=== PATIENT | female | born 1960 | race Caucasian/White ===

== ENCOUNTER 2019-03-10 21:42 | Inpatient (IN) | payer OTHER ==
[2019-03-10 22:13] LABS: ADD MAN DIFF? NO
[2019-03-10 22:17] LABS: BASOPHILS % 0.3 % (0.0-2.0); EOSINOPHILS # 0.3 10^3/ul (0.0-0.5); EOSINOPHILS % 2.9 % (0.0-7.0); HEMATOCRIT 40.6 % (37.0-47.0); HEMOGLOBIN 13.3 g/dl (12.0-16.0); LYMPHOCYTES # 3.6 10^3/ul (0.8-2.9); LYMPHOCYTES % 36.8 % (15.0-51.0); MEAN CORPUSCULAR HEMOGLOBIN 28.9 pg (29.0-33.0); MEAN CORPUSCULAR HGB CONC 32.8 g/dl (32.0-37.0); MEAN CORPUSCULAR VOLUME 88.3 fl (82.0-101.0); MEAN PLATELET VOLUME 10.7 fl (7.4-10.4); MONOCYTE # 0.6 10^3/ul (0.3-0.9); MONOCYTES % 6.1 % (0.0-11.0); NEUTROPHIL # 5.3 10^3/ul (1.6-7.5); NEUTROPHILS % 53.6 % (39.0-77.0); PLATELET COUNT 303 10^3/UL (140-415); RED CELL DISTRIBUTION WIDTH 13.3 % (11.5-14.5)
[2019-03-10 22:17] LABS: WHITE BLOOD COUNT 9.8 10^3/ul (4.8-10.8)
[2019-03-10 22:39] LABS: ANION GAP 12 (5-13); BLOOD UREA NITROGEN 18 mg/dl (7-20); CALCIUM 10.5 mg/dl (8.4-10.2); CARBON DIOXIDE 26 mmol/L (21-31); CHLORIDE 102 mmol/L (97-110); CREATININE 1.15 mg/dl (0.44-1.00); Estimated GFR 48 mL/min (>60); GLUCOSE 136 mg/dl (70-220); POTASSIUM 3.5 mmol/L (3.5-5.1); SODIUM 140 mmol/L (135-144)
[2019-03-10 22:49] LABS: TROPONIN-I < 0.012 ng/ml (0.000-0.120)
[2019-03-11] MEDS ORDERED: ONDANSETRON 4 MG INJ IV ×2 (00:30)
[2019-03-11] MEDS ORDERED: DOCUSATE SODIUM 100 MG CAP PO (00:30)
[2019-03-11] MEDS ORDERED: BISACODYL (EC) 5 MG TAB PO (00:30)
[2019-03-11] MEDS ORDERED: NITROGLYCERIN (SL) 0.4 MG TAB SL (00:30)
[2019-03-11] MEDS ORDERED: NACL 0.9% 3 ML SYG IV (00:30)
[2019-03-11] MEDS ORDERED: morphine 2 MG INJ IV (00:30)
[2019-03-11] MEDS ORDERED: ACETAMINOPHEN 325 MG TAB PO ×2 (00:30)
[2019-03-11] MEDS: POTASSIUM CHLORIDE (SR) 20 MEQ TAB PO ×2 (03:14→08:32)
[2019-03-11] MEDS: SOD CHLORIDE 0.9% 500 ML IV (03:19)
[2019-03-11 05:30] LABS: CREATINE KINASE 111 IU/L (23-200)
[2019-03-11 05:37] LABS: CK INDEX 0.3; CK-MB 0.34 ng/ml (0.0-2.4); TROPONIN-I < 0.012 ng/ml (0.000-0.120)
[2019-03-11] MEDS: ESTROGENS CONJUGATED 0.3 MG TAB PO (08:32)
[2019-03-11] MEDS: AMLODIPINE 5 MG TAB PO (08:32)
[2019-03-11 11:34] LABS: CREATINE KINASE 104 IU/L (23-200)
[2019-03-11 11:47] LABS: CK INDEX 0.3; CK-MB 0.32 ng/ml (0.0-2.4); TROPONIN-I < 0.012 ng/ml (0.000-0.120)
[2019-03-11 15:04] LABS: CREATINE KINASE 110 IU/L (23-200)
[2019-03-11 15:16] LABS: CK INDEX 0.3; CK-MB 0.29 ng/ml (0.0-2.4); TROPONIN-I < 0.012 ng/ml (0.000-0.120)
[2019-03-12 08:59] LABS: ADD MAN DIFF? NO
[2019-03-12 09:01] LABS: WHITE BLOOD COUNT 7.2 10^3/ul (4.8-10.8)
[2019-03-12 09:01] LABS: BASOPHILS % 0.4 % (0.0-2.0); EOSINOPHILS # 0.4 10^3/ul (0.0-0.5); EOSINOPHILS % 5.7 % (0.0-7.0); HEMATOCRIT 37.6 % (37.0-47.0); HEMOGLOBIN 12.4 g/dl (12.0-16.0); LYMPHOCYTES # 3.4 10^3/ul (0.8-2.9); LYMPHOCYTES % 47.4 % (15.0-51.0); MEAN CORPUSCULAR HEMOGLOBIN 29.3 pg (29.0-33.0); MEAN CORPUSCULAR VOLUME 88.9 fl (82.0-101.0); MEAN PLATELET VOLUME 10.8 fl (7.4-10.4); MONOCYTE # 0.6 10^3/ul (0.3-0.9); MONOCYTES % 8.2 % (0.0-11.0); NEUTROPHIL # 2.7 10^3/ul (1.6-7.5); NEUTROPHILS % 38.2 % (39.0-77.0); PLATELET COUNT 273 10^3/UL (140-415); RED BLOOD COUNT 4.23 10^6/ul (4.20-5.40); RED CELL DISTRIBUTION WIDTH 13.2 % (11.5-14.5)
[2019-03-12 09:10] LABS: HEMOGLOBIN A1C 6.2 % (0-5.9)
[2019-03-12 09:27] LABS: ALANINE AMINOTRANSFERASE 15 IU/L (13-69); ALBUMIN 4.1 g/dl (3.3-4.9); ALBUMIN/GLOBULIN RATIO 1.05; ALKALINE PHOSPHATASE 64 IU/L (42-121); ANION GAP 9 (5-13); ASPARTATE AMINO TRANSFERASE 18 IU/L (15-46); BILIRUBIN,INDIRECT 0.2 mg/dl (0-1.1); BILIRUBIN,TOTAL 0.2 mg/dl (0.2-1.3); BLOOD UREA NITROGEN 15 mg/dl (7-20); CALCIUM 9.9 mg/dl (8.4-10.2); CARBON DIOXIDE 25 mmol/L (21-31); CHLORIDE 107 mmol/L (97-110); CHOL/HDL RATIO 3.6 RATIO; CHOLESTEROL 173 mg/dl (100-200); CREATININE 0.84 mg/dl (0.44-1.00); Estimated GFR > 60 mL/min (>60); GLUCOSE 117 mg/dl (70-220); HDL CHOLESTEROL 47 mg/dl (35-98); LDL CHOLESTEROL,CALCULATED 107 mg/dl; MAGNESIUM 2.1 mg/dl (1.7-2.5); SODIUM 141 mmol/L (135-144); TRIGLYCERIDES 96 mg/dl (0-149)
[2019-03-12] MEDS: ESTROGENS CONJUGATED 0.3 MG TAB PO (09:43)
[2019-03-12] MEDS: AMLODIPINE 5 MG TAB PO (09:44)
[2019-03-12] MEDS: POTASSIUM CHLORIDE (SR) 20 MEQ TAB PO (09:44)
[2019-03-12] MEDS: REGADENOSON 0.4 MG/5 ML SYG (12:55)
== END 2019-03-12 18:11 | disposition home or self-care (01) | DRG 312 ==
LOC: 6WM 03-11 00:01 → E/R 21:42 → 6WM 03-11 16:32
PROVIDERS: Family Medicine
DX: R55 Syncope and collapse (principal); N17.9 Acute kidney failure, unspecified; E88.81 Metabolic syndrome and other insulin resistance; I10 Essential (primary) hypertension; E66.9 Obesity, unspecified; Z68.36 Body mass index [BMI] 36.0-36.9, adult; I45.4 Nonspecific intraventricular block; N95.1 Menopausal and female climacteric states
CPT/HCPCS: 36415; 71045; 78452; 80048; 80053; 80061; 82550; 82553; 82962; 83036; 83735; 84443; 84484; 85025; 93005; 93017; 93306; 93880; 99285-25; G0378